=== PATIENT | male | born 1965 | race Caucasian/White ===

== ENCOUNTER → 2018-01-20 | Day surgery (SDC) | payer OTHER ==
[2018-01-19 13:42] LABS: BASOPHILS # (AUTO) 0.1 (0.0-0.1); BASOPHILS % 1.1 % (0.0-1.0); EOSINOPHILS # (AUTO) 0.1 (0.0-0.4); EOSINOPHILS % 2.2 % (0.0-6.0); HEMATOCRIT 41.8 % (38.2-49.6); HEMOGLOBIN 14.2 g/dL (14.0-18.0); LYMPHOCYTES # (AUTO) 1.1 (1.0-3.2); LYMPHOCYTES % 20.9 % (18.0-39.1); MEAN CORPUSCULAR HEMOGLOBIN 28.9 pg (28-32); MEAN CORPUSCULAR VOLUME 85.1 fL (81-99); MONOCYTES # (AUTO) 0.4 (0.2-0.8); MONOCYTES % 6.5 % (4.4-11.3); NEUTROPHILS # (AUTO) 3.7 (2.1-6.9); NEUTROPHILS % 68.7 % (38.7-80.0); PLATELET COUNT 180 x10e3/uL (140-360); RED BLOOD COUNT 4.91 x10e6/uL (4.3-5.7)
[2018-01-19 13:50] LABS: INR 0.89; PROTHROMBIN TIME 12.9 seconds (11.9-14.5)
[2018-01-19 14:00] LABS: ALBUMIN 4.1 g/dL (3.5-5.0); ALBUMIN/GLOBULIN RATIO 1.2 (0.8-2.0); ANION GAP 17.9 mmol/L (8-16); CALCIUM 9.9 mg/dL (8.4-10.2); CREATININE, SERUM 1.4 mg/dL (0.72-1.25); POTASSIUM 4.9 mmol/L (3.5-5.1)
[2018-01-20] VITALS (7 sets, daily range): BP systolic 115–140; BP diastolic 80–89
[~2018-01-20] VITALS: Ht 180.3 cm; Wt 108.9 kg
[~2018-01-20] MED LIST: ALDACTONE25 MG PO; FENTANYL CITRATE/PF 100MCG/2 ML INJ ONE; HEPARIN SOD (PORCINE) 1000 UNIT/ML 30ML ONE; HEPARIN SOD/SOD CHLORIDE 2,000 ML ONE; IOPAMIDOL 370 MG/ML 200 ML INFUS..BTL INJ ONE; LIDOCAINE HCL 2% LOCAL 20 ML VIAL ONE; LISINOPRIL10 MG PO; MIDAZOLAM HCL 2 MG/2 ML VIAL ONE; NITROGLYCERIN/D5W 200 MCG/ML 250 ML ONE; NORVASC5 MG PO; PREVACID15 M1 PO; SODIUM CHLORIDE 0.9% 1000ML 1,000 ML ONE; SYNTHROID75 MCG PO; SYNTHROID88 MCG PO; TRIAVIL PO; XANAX0.5 MG PO; ZOCOR20 MG PO; ZOLOFT50 MG PO
--- OUTSIDE RECORDS SUMMARY | 2018-01-20 08:53 | XMS REPORT | Clinical Summary ---
Author Author MARTELL [facility] Address Unknown Phone Unavailable Care Team Providers Care Senior Oracle Database Developer Name Role Phone PCP Unavailable Allergies Not on File Medications Not on file Active Problems Not on file Social History Date Tobacco Use Types Packs/Day Years Used Never Assessed Sex Assigned at Date Recorded Not on file Industry Job Start Date Occupation Not on file Not on file Not on file Travel End Travel History Travel Start No recent travel history available. Last Filed Vital Signs Not on file Plan of Treatment Care Team Description Date Type Specialty Paul Last MD [address] [place] [facility] [address] [place] [address] [phone] 02/02/2018 Hospital Encounter Paul Last MD [address] [place] [address] [place], [place] [id number] REPOSITION,IOL W/IRIS SUTURING 02/02/2018 Surgery Results Not on fileafter 01/19/2017 Insurance Payer Benefit Subscriber ID Type Phone Address Plan / Group [employer] xxxxxxxxxx [employer]CHANGE BLUE CROSS/BLUE SHIELD BCBS PPO xxxxxxxxxxxx PPO [phone] [address] [place] [address] CHOICE OTHER-COMMERCIAL GENERIC xxxxxxxxx-xxxx- TPL AUTO xxx INSURANCE
--- NOTE | 2018-01-20 14:56 | Operative Report ---
DATE OF PROCEDURE: January 20, 2018 PROCEDURES 1. Selective coronary angiography x2. 2. Left heart catheterization. INDICATIONS: 1. Abnormal treadmill stress test. 2. Chest pain. SYSTEMIC SEDATION: 1. Midazolam 3 mg. 2. Fentanyl 75 mcg. CONSENT: Informed consent was obtained and documented in the chart. PROCEDURE IN DETAIL: The patient was brought to the cardiac catheterization laboratory in a fasting state after written informed consent was obtained. Bilateral groins were prepped and draped in the usual sterile fashion. Then 1% lidocaine was infiltrated over the right common femoral artery to achieve local anesthesia. Systemic sedation was given. Micropuncture needle was used to access the right common femoral artery. A 5-Czech sheath was placed via modified Seldinger technique. A 5-Czech JL4 was inserted and advanced into the ascending aorta. The left main coronary artery was cannulated under fluoroscopic guidance. Selective coronary angiograms were obtained. The JL4 was removed and the 5-Czech JR4 was inserted and advanced into the ascending aorta. The right coronary artery was cannulated under fluoroscopic guidance. Selective coronary angiograms were performed. The JR4 was inserted and advanced into the left ventricle. Hemodynamic measurements were obtained. The JR4 was removed. Angiogram was obtained of the right external iliac artery via the 5-Czech sheath. Vascade closure device was used to achieve hemostasis. The patient tolerated the procedure well without any immediate complications. FINDINGS: The left main coronary artery bifurcates into the left anterior descending and circumflex arteries. The left anterior descending is subtotally occluded in the mid portion. One large diagonal is observed with 90% stenosis in the proximal portion. There is a smaller second diagonal that has 99% stenosis at the ostium, and right to left collaterals are noted. The left circumflex is a large caliber vessel, which gives rise to a small OM 1 and larger branching OM 2 and 3. There was a 50% stenosis at the proximal circumflex. Left to right collaterals are observed. The right coronary artery is chronically occluded in its proximal portion, right to right as well as right to left collaterals are noted. This is a right dominant system. LVEDP at 19 mmHg CONCLUSION: Multivessel coronary artery disease. RECOMMENDATIONS: Transfer for evaluation of coronary artery bypass surgery. Job#: [id number] [facility]
== END | disposition short-term general hospital (02) ==
LOC: CATH LAB 08:51
PROVIDERS: ATTEND Internal Medicine
DX: I25.10 Atherosclerotic heart disease of native coronary artery without angina pectoris (principal); R94.39 Abnormal result of other cardiovascular function study; I11.9 Hypertensive heart disease without heart failure; E78.5 Hyperlipidemia, unspecified; Z01.812 Encounter for preprocedural laboratory examination; Z68.33 Body mass index [BMI] 33.0-33.9, adult
CPT/HCPCS: 36415; 80053; 85025; 85610; 93458; C1760; C1769; J2001; J2250; J7030; Q9967; J1644